=== PATIENT | male | born 1980 | race Caucasian/White ===

== ENCOUNTER 2016-11-14 18:52 | Emergency (ER) | payer OTHER ==
[~2016-11-14] VITALS: Ht 188 cm; Wt 91.7 kg
[~2016-11-14 18:52] MED LIST: CYCL-36 PO; NAPR500 PO
[2016-11-14 19:28] VITALS: BP 120/86; PULSE 113; RESP 20; TEMP 98.8; O2SAT 100
[2016-11-14 20:20] VITALS: BP 118/84; PULSE 107; RESP 18; O2SAT 98
[2016-11-14] MEDS ORDERED: ORPHENADRINE INJ 60 MG/2 ML AMP IM ONE (21:00)
[2016-11-14] MEDS ORDERED: KETOROLAC TROMETHAMINE 60 MG/2 ML (IM) VIAL IM ONE (21:00)
--- NOTE | 2016-11-14 21:09 | PD ---
HPI Chief Complaint: Pain: Acute or Chronic Time Seen by Provider: 20:50 Travel History International Travel<30 days: No Contact w/Intl Traveler<30days: No Traveled to known affect area: No History of Present Illness HPI Patient is a 36-year-old male with chief complaint of bilateral low back pain. He has had this chronically for many years but has had many flares since February 2016 after he performed a flip into a pool. He has been evaluate PVC with CT which was unremarkable. He has chronic tightness in the bilateral lower back that is worse in the morning and worse with bending. 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 The pain is sometimes in the left, sometimes the right and sometimes both. He occasionally has pain standing in his buttocks. On the left the pain extends into the mid thigh and in the right chest into the buttock. Sometimes it will affect both, sometimes 1 or the other. This pain is pinching in nature. He denies burning, paresthesia, numbness, saddle anesthesia and bowel or bladder dysfunction. He denies any trauma to the back. Denies any abdominal pain, fevers or history of IVDA. He takes ibuprofen which helps only minimally. [facility] Past Medical History Immunizations Current: No Tetanus Vaccination: < 5 Years Influenza Vaccination: Yes Past Surgical History Surgical History: No Previous Surgery Social History Alcohol Use: Yes (Social) Tobacco Use: Yes (/2 PPD) Substance Use: No Allergies-Medications (Allergen,Severity, Reaction): Coded Allergies: No Known Allergies (Unverified , 11/14/16) Reported Meds & Prescriptions Reported Meds & Active Scripts Active No Active Prescriptions or Reported Medications Review of Systems Except as stated in HPI: all other systems reviewed are Neg Physical Exam Narrative GENERAL: Well-developed and well-nourished adult male in no acute distress. SKIN: Warm and dry. Good turgor without tenting. HEAD: Normocephalic and atraumatic. EYES: PERRL bilaterally, 5mm. EOMI bilaterally. No injection or icterus present. No proptosis. Lids without edema or erythema. ENT:Buccal mucosa pink and moist. Oropharynx free of erythema, tonsillar hypertrophy, masses, swelling, asymmetry and exudates. Uvula midline and airway patent. NECK: Supple, no midline tenderness, crepitus or step-offs. Trachea midline, no JVD. No cervical or facial lymphadenopathy. CARDIOVASCULAR: Regular rate and rhythm without murmurs, rubs, clicks or gallops. Dorsalis pedis and posterior tibial pulses 2+ bilaterally. No pedal edema. RESPIRATORY: Clear to auscultation bilaterally with symmetrical rise and fall, no distress or use of accessory muscles. GASTROINTESTINAL: Non-tender, non-distended. Normal bowel sounds all 4 quadrants. No masses or organomegaly present. No pulsations present. External anus is unremarkable. Digital rectal exam reveals normal rectal tone. MUSCULOSKELETAL: Gross exam of the lumbosacral spine reveals no edema or discoloration. There is minor tenderness palpation of the sacrum and bilateral SI joints and low lumbar paraspinous muscles. No lumbar midline tenderness, crepitus or step-offs. No pain with pelvic rocking or pelvic instability. Negative bilateral straight leg raise. Antalgic gait. Patient freely moving all four extremities spontaneously. Extremities without clubbing, cyanosis, or edema. No obvious deformities. NEUROLOGIC: CN II-XII grossly intact. Awake and alert. Sensation intact L1-S2 bilaterally. Strength 5/5 in hip flexion, hip extension, knee flexion, knee extension, plantar flexion, dorsiflexion, and great toe flexion and extension bilaterally. Bilateral patellar and Achilles DTRs 2+. Downgoing Babinskis bilaterally. Normal speech. PSYCHIATRIC: Appropriate mood and affect; insight and judgment normal. *Patient was examined in the presence of a tech, [place], at all times* Data Data Last Documented VS Vital Signs Date Time Temp Pulse Resp B/P Pulse Ox O2 Delivery O2 Flow Rate FiO2 11/14/16 20:20 107 18 118/84 98 Room Air 11/14/16 19:28 98.8 Orders Ketorolac Inj (Toradol Inj) (11/14/16 21:00) Orphenadrine Inj (Norflex Inj) (11/14/16 21:00) Spine, Lumbar Comp W/Obliq (11/14/16 20:54) Acetamin-Hydrocod 325-7.5 Mg ([place] 7.5 (11/14/16 22:30) MDM Medical Decision Making Medical Screen Exam Complete: Yes Emergency Medical Condition: Yes Differential Diagnosis Back spasms versus back strain versus sciatica versus DDD versus lumbar radiculopathy unlikely Narrative Course Patient's 36-year-old male with chronic back pain. He has frequent flares and feels like this one is worse than usual. Denies any trauma or injury. He has some radiating symptoms however he seemed to be mostly muscular in nature and not consistent with radiculopathy. He does not report any burning or tingling sensations and has no "red flag" symptoms. The pain radiates into his buttocks. This radiating pain is confined to the upper buttocks and mid thigh and is a tight feeling. The patient feels like he has a lot of tightness in his lower back as well. He is tenderness to palpation of the muscles diffusely. Straight leg raise is negative and the patient is neurovascularly intact. There is an element of sciatica possibly present as well but he rapidly radiculopathy is present. Patient was given Toradol and Norflex which did not help much. Patient states he's had difficulty sleeping due to this and requested something additional. He was getting a ride with his mother. I do not believe the patient is drug-seeking or blistering and prescription drug database does not show that he is feeling opioid medications. He was given 1 Lortab here. Ordered x-ray of the lumbar spine which shows no evidence of fracture or subluxation. Isolated the patient that I believe this is most likely muscular in nature and the chronicity and temporal relationship with his physical activity makes this likely as well. We'll give him Medrol Dosepak and Robaxin and recommended home care measures and establish with a PCP for follow- up in 2-3 days.See discharge paperwork for further instructions. The plan was discussed with the patient who acknowledged their understanding and agreement. Reinforced the follow-up with primary care is critically important. Patient instructed on emergent conditions that should prompt return to ED. Diagnosis Primary Impression: Low back pain Qualified Code: M54.5 - Acute bilateral low back pain, with sciatica presence unspecified Additional Impression: Muscle spasm Patient Instructions: Acute Low Back Pain (ED), General Instructions, Lower Back Exercises (ED), Muscle Spasm (ED), Narcotic given in the ED Departure Forms: Tests/Procedures, Work Release Enter return to work date: Nov 17, 2016 Additional Instructions: Rest for 24 hours, then gradually resume normal activity Avoid maneuvers or positions that aggravate the pain Avoid twisting/bending or lifting heavy items Take medications as prescribed Your medications may cause drowsiness. Do not take with alcohol or sedatives. Do not operate a motor vehicle or heavy machinery while on medication. Warm, moist heat applied to painful areas hourly as needed Try to massage and stretch affected muscles after applying heat to speed recovery Follow-up with PCP in 2-3 days Return to ED for any acute worsening of symptoms Med/Other Pt SpecificInfo: Prescription(s) given Scripts Methylprednisolone Dosepak (Medrol Dosepak)4 Mg Dspk4 Mg PO DIRECTED #1 DSPK Per Pharmacist direction Prov:Christie Alamo MD 11/14/16 Methocarbamol (Robaxin)750 Mg [id number] Mg PO QID PRN (MUSCLE SPASM) #40 TAB 2 tabs QID for 2 days, then 1 tab QID thereafter Prov:Christie Alamo MD 11/14/16 Disposition: 01 DISCHARGE HOME Condition: Stable Carlton Guerra III Nov 14, 2016 21:09
[2016-11-14] MEDS ORDERED: ACETAMINOPHEN/HYDROcodone 325 MG/7.5 MG TAB PO ONE (22:30)
--- NOTE | 2016-11-14 22:35 | RADHPO ---
EXAM DATE/TIME: 11/14/2016 21:32 [facility] COMPARISON: No previous studies available for comparison. INDICATIONS : Lower back pain for over two weeks. Patient states he has had pain for years but it has worsened over the last two weeks. No known injury. MEDICAL HISTORY : None. SURGICAL HISTORY : None. ENCOUNTER: Initial ACUITY: 2 weeks PAIN SCORE: 8/10 LOCATION: Bilateral lumbar spine. FINDINGS: There are five non-rib bearing vertebral bodies. The vertebral bodies are in normal alignment withou t evidence of subluxation or scoliosis. The disc spaces are maintained. The posterior elements are intact without evidence of spondylolysis. The pedicles are intact. Bony mineralization is normal. No fracture is identified. CONCLUSION: Normal examination for a patient of this age. Calin Coppola MD on November 14, 2016 at 22:33 Board Certified Radiologist. This report was verified electronically.
[2016-11-14] MEDS ORDERED: MEDR4PAK PO (22:42)
[2016-11-14] MEDS ORDERED: ROBA750T PO (22:42)
[2016-11-14 23:29] VITALS: RESP 18
== END 2016-11-14 23:30 | disposition home or self-care (01) ==
LOC: PHEFT 18:52
DX: M54.5 Low back pain (principal); M54.30 Sciatica, unspecified side; M62.830 Muscle spasm of back; G89.29 Other chronic pain; F17.200 Nicotine dependence, unspecified, uncomplicated
CPT/HCPCS: 72110; 96372; 99283; J1885; J2360